=== PATIENT | male | born 1965 | race Caucasian/White ===

== ENCOUNTER 2025-02-09 19:17 | Inpatient (IN) | payer OTHER ==
[2025-02-09 20:26] LABS: ABSOLUTE IMMATURE GRANULOCYTES 0.02 x10^3/uL (0.0-0.031); BASOPHILS # 0.02 x10^3/uL (0.01-0.08); BG HCT 54.0 % (35.4-49); EOSINOPHIL % 0.0 % (0.8-7.0); EOSINOPHILS # 0.00 x10^3/uL (0.04-0.54); MCHC 33.1 g/dl (32.3-36.5); MEAN CELL VOLUME 85.2 fl (79.0-92.2); MEAN PLT VOLUME 9.2 fl (9.4-12.4); MONOCYTE # 1.07 x10^3/uL (0.30-0.82); MONOCYTE % 12.7 % (5.3-12.2); RDW 13.2 % (12.2-16.4); VENOUS BASE EXCESS -0.8 mmol/L (-2-2); VENOUS O2 SATURATION 74.4 % (70-80); VENOUS PCO2 38.4 mmHg (38-52); VENOUS PH 7.405 (7.310-7.410)
[2025-02-09] MEDS ORDERED: CEFEPIME HCL/D5W 2 GM/50 ML BAG IVPB ONE (20:40)
[2025-02-09] MEDS: CEFEPIME HCL 2 GM VIAL (RESTRICTED TO ID) IVPB ONE (20:51)
[2025-02-09 21:08] LABS: CO2 27.0 mmol/L (21-32); CREATININE 1.3 mg/dL (0.55-1.3); GLUCOSE,RANDOM 180.0 mg/dL (74-106); SGOT/AST 14.0 U/L (15-37); SGPT/ALT 16.0 U/L (13-61)
[2025-02-09 21:09] LABS: TOT PROT 6.6 g/dl (6.4-8.2)
[2025-02-09 21:11] LABS: ALK PHOS 62.0 U/L (45-117)
[2025-02-09] MEDS ORDERED: VANCOMYCIN/WATER 1250 MG 1,250 MG/250 ML BAG IVPB ONE (22:21)
[2025-02-09 22:36] LABS: EPI CELLS 25 /uL (0-25.1); HYALINE CASTS 20 /uL (0-3.1); URINE APPEARANCE CLOUDY; URINE BACTERIA 16 /uL (0-1359); URINE BILIRUBIN 2+ (NEGATIVE); URINE COLOR ORANGE; URINE GLUCOSE (UA) NEGATIVE (NEGATIVE); URINE KETONE 3+ (NEGATIVE); URINE LEUK ESTERASE NEGATIVE (NEGATIVE); URINE NITRITE NEGATIVE (NEGATIVE); URINE PROTEIN 2+ (NEGATIVE); URINE RBC 530 /uL (0-23.9); URINE UROBILINOGEN 1.0 mg/dL (0.2-1.0); URINE WBC 33 /uL (0-25.8)
[2025-02-09] MEDS: VANCOMYCIN/WATER 1250 MG 1,250 MG/250 ML BAG IVPB ONE (22:37)
[2025-02-09] MEDS ORDERED: LORazepam 2 MG/ML SDV VIAL IVPUSH PRN (23:35)
[2025-02-09] MEDS ORDERED: ACETAMINOPHEN 325 MG TABLET (FP) PO PRN (23:46)
[2025-02-10] MEDS: INSULIN ASPART SLIDING SCALE (NOVOLOG) 1 VIAL SQ SCH (00:17)
[2025-02-10] MEDS: PANTOPRAZOLE 40 MG TABLET PO SCH (00:18)
[2025-02-10] MEDS: D5-1/2NS+20 MEQ KCL - 20 MEQ/1,000 ML INFUS.BAG IV SCH ×2 (00:22→13:33)
[2025-02-10] MEDS ORDERED: HEPARIN NA (PORCINE) 5,000 UNITS/ML 1ML VIAL ONE (00:25)
[2025-02-10] MEDS: HEPARIN NA (PORCINE) 5,000 UNITS/ML 1ML VIAL SQ SCH (00:27)
[2025-02-10 05:16] VITALS: BMI 20.7
[2025-02-10 07:38] LABS: MEAN CELL VOLUME 85.0 fl (79.0-92.2); RDW 13.2 % (12.2-16.4)
[2025-02-10 07:40] LABS: IMMATURE PLATELET FRACTION # 3.50 x10^3/uL; MCHC 33.3 g/dl (32.3-36.5); MEAN PLT VOLUME 10.1 fl (9.4-12.4)
[2025-02-10 12:24] LABS: CO2 28.0 mmol/L (21-32); GLUCOSE,RANDOM 138.0 mg/dL (74-106)
[2025-02-10 12:27] LABS: CREATININE 1.1 mg/dL (0.55-1.3)
[2025-02-10] MEDS: LORazepam 4 MG/1 ML VIAL IVPUSH PRN (13:19)
[2025-02-10] MEDS: ACETAMINOPHEN 1000 MG/100 ML BAG IVPB PRN (13:33)
[2025-02-10] MEDS: ROSUVASTATIN CA 10 MG TABLET PO SCH (21:32)
[2025-02-10] MEDS: VANCOMYCIN/WATER FOR INJ (PEG) 1,000 MG/200 ML BAG IVPB ONE (22:42)
[2025-02-11 08:10] LABS: MCHC 32.8 g/dl (32.3-36.5); MEAN CELL VOLUME 85.4 fl (79.0-92.2); MEAN PLT VOLUME 9.7 fl (9.4-12.4); RDW 13.3 % (12.2-16.4)
[2025-02-11 08:22] LABS: GLUCOSE,RANDOM 124.0 mg/dL (74-106)
[2025-02-11 08:24] LABS: CO2 28.0 mmol/L (21-32)
[2025-02-11 08:25] LABS: CREATININE 0.8 mg/dL (0.55-1.3)
[2025-02-11] MEDS: CEFTRIAXONE 2 GM in DEXTROSE 5%-WATER 100 ML IVPB SCH (10:11)
[2025-02-12 08:06] LABS: ABSOLUTE IMMATURE GRANULOCYTES 0.03 x10^3/uL (0.0-0.031); BASOPHILS # 0.01 x10^3/uL (0.01-0.08); EOSINOPHIL % 1.1 % (0.8-7.0); EOSINOPHILS # 0.06 x10^3/uL (0.04-0.54); MCHC 32.6 g/dl (32.3-36.5); MEAN CELL VOLUME 87.2 fl (79.0-92.2); MEAN PLT VOLUME 9.3 fl (9.4-12.4); MONOCYTE # 0.84 x10^3/uL (0.30-0.82); MONOCYTE % 15.2 % (5.3-12.2); RDW 13.4 % (12.2-16.4)
[2025-02-12 08:36] LABS: CO2 30.0 mmol/L (21-32); GLUCOSE,RANDOM 120.0 mg/dL (74-106)
[2025-02-12 08:40] LABS: CREATININE 0.8 mg/dL (0.55-1.3)
[2025-02-13 08:25] LABS: ABSOLUTE IMMATURE GRANULOCYTES 0.05 x10^3/uL (0.0-0.031); BASOPHILS # 0.02 x10^3/uL (0.01-0.08); EOSINOPHIL % 1.6 % (0.8-7.0); EOSINOPHILS # 0.10 x10^3/uL (0.04-0.54); MCHC 32.4 g/dl (32.3-36.5); MEAN CELL VOLUME 86.0 fl (79.0-92.2); MEAN PLT VOLUME 9.0 fl (9.4-12.4); MONOCYTE # 1.03 x10^3/uL (0.30-0.82); MONOCYTE % 16.5 % (5.3-12.2); RDW 13.2 % (12.2-16.4)
[2025-02-13 08:58] LABS: CO2 29.0 mmol/L (21-32)
[2025-02-13 09:01] LABS: CREATININE 0.7 mg/dL (0.55-1.3); GLUCOSE,RANDOM 113.0 mg/dL (74-106)
[2025-02-14 10:35] LABS: ABSOLUTE IMMATURE GRANULOCYTES 0.07 x10^3/uL (0.0-0.031); BASOPHILS # 0.03 x10^3/uL (0.01-0.08); EOSINOPHIL % 1.5 % (0.8-7.0); EOSINOPHILS # 0.09 x10^3/uL (0.04-0.54); MCHC 32.8 g/dl (32.3-36.5); MEAN CELL VOLUME 84.6 fl (79.0-92.2); MEAN PLT VOLUME 9.5 fl (9.4-12.4); MONOCYTE # 0.86 x10^3/uL (0.30-0.82); MONOCYTE % 13.9 % (5.3-12.2); RDW 13.0 % (12.2-16.4)
[2025-02-14 11:01] LABS: CO2 29.0 mmol/L (21-32)
[2025-02-14 11:02] LABS: GLUCOSE,RANDOM 121.0 mg/dL (74-106)
[2025-02-14 11:05] LABS: CREATININE 0.7 mg/dL (0.55-1.3)
[2025-02-14 19:03] LABS: URINE APPEARANCE CLEAR; URINE BILIRUBIN NEGATIVE (NEGATIVE); URINE COLOR YELLOW; URINE GLUCOSE (UA) NEGATIVE (NEGATIVE); URINE KETONE TRACE (NEGATIVE); URINE LEUK ESTERASE NEGATIVE (NEGATIVE); URINE NITRITE NEGATIVE (NEGATIVE); URINE PROTEIN NEGATIVE (NEGATIVE); URINE UROBILINOGEN 1.0 mg/dL (0.2-1.0)
[2025-02-15 06:57] LABS: ABSOLUTE IMMATURE GRANULOCYTES 0.07 x10^3/uL (0.0-0.031); BASOPHILS # 0.03 x10^3/uL (0.01-0.08); EOSINOPHIL % 1.5 % (0.8-7.0); EOSINOPHILS # 0.08 x10^3/uL (0.04-0.54); MCHC 32.3 g/dl (32.3-36.5); MEAN CELL VOLUME 85.8 fl (79.0-92.2); MEAN PLT VOLUME 8.6 fl (9.4-12.4); MONOCYTE # 0.94 x10^3/uL (0.30-0.82); MONOCYTE % 17.5 % (5.3-12.2); RDW 12.9 % (12.2-16.4)
[2025-02-15 07:30] LABS: CO2 31.0 mmol/L (21-32); GLUCOSE,RANDOM 123.0 mg/dL (74-106)
[2025-02-15 07:34] LABS: CREATININE 0.8 mg/dL (0.55-1.3)
[2025-02-15] MEDS: CEFUROXIME AXETIL 500 MG TABLET PO SCH (09:31)
[2025-02-15] MEDS: PANTOPRAZOLE SODIUM 40 MG VIAL IVPUSH SCH (09:31)
[2025-02-15] MEDS: LORazepam 4 MG/1 ML VIAL IVPUSH PRN (22:05)
[2025-02-15] MEDS: D5-1/2NS+20 MEQ KCL - 20 MEQ/1,000 ML INFUS.BAG IV SCH ×2 (22:06→23:20)
[2025-02-15] MEDS: HEPARIN NA (PORCINE) 5,000 UNITS/ML 1ML VIAL SQ SCH (22:06)
[2025-02-16] MEDS: PANTOPRAZOLE 40 MG TABLET PO SCH (11:42)
[2025-02-16] MEDS: CEFUROXIME AXETIL 500 MG TABLET PO SCH (11:43)
[2025-02-16] MEDS: ROSUVASTATIN CA 10 MG TABLET PO SCH (23:01)
[2025-02-17 13:23] LABS: ABSOLUTE IMMATURE GRANULOCYTES 0.09 x10^3/uL (0.0-0.031); BASOPHILS # 0.03 x10^3/uL (0.01-0.08); EOSINOPHIL % 1.5 % (0.8-7.0); EOSINOPHILS # 0.09 x10^3/uL (0.04-0.54); MCHC 33.1 g/dl (32.3-36.5); MEAN CELL VOLUME 84.4 fl (79.0-92.2); MEAN PLT VOLUME 8.4 fl (9.4-12.4); MONOCYTE # 0.96 x10^3/uL (0.30-0.82); MONOCYTE % 15.9 % (5.3-12.2); RDW 13.0 % (12.2-16.4)
[2025-02-17 15:46] LABS: CO2 29.0 mmol/L (21-32); CREATININE 0.9 mg/dL (0.55-1.3); GLUCOSE,RANDOM 119.0 mg/dL (74-106)
[2025-02-18 10:33] LABS: ABSOLUTE IMMATURE GRANULOCYTES 0.05 x10^3/uL (0.0-0.031); BASOPHILS # 0.03 x10^3/uL (0.01-0.08); EOSINOPHIL % 1.0 % (0.8-7.0); EOSINOPHILS # 0.07 x10^3/uL (0.04-0.54); MCHC 33.0 g/dl (32.3-36.5); MEAN CELL VOLUME 84.4 fl (79.0-92.2); MEAN PLT VOLUME 8.8 fl (9.4-12.4); MONOCYTE # 0.90 x10^3/uL (0.30-0.82); MONOCYTE % 13.0 % (5.3-12.2); RDW 13.1 % (12.2-16.4)
[2025-02-18 11:30] LABS: CO2 28.0 mmol/L (21-32); CREATININE 0.8 mg/dL (0.55-1.3); GLUCOSE,RANDOM 126.0 mg/dL (74-106)
[2025-02-19 09:41] LABS: ABSOLUTE IMMATURE GRANULOCYTES 0.07 x10^3/uL (0.0-0.031); BASOPHILS # 0.03 x10^3/uL (0.01-0.08); EOSINOPHIL % 0.7 % (0.8-7.0); EOSINOPHILS # 0.06 x10^3/uL (0.04-0.54); MCHC 33.0 g/dl (32.3-36.5); MEAN CELL VOLUME 84.5 fl (79.0-92.2); MEAN PLT VOLUME 9.4 fl (9.4-12.4); MONOCYTE # 0.73 x10^3/uL (0.30-0.82); MONOCYTE % 8.7 % (5.3-12.2); RDW 13.2 % (12.2-16.4)
[2025-02-19 10:13] LABS: CO2 27.0 mmol/L (21-32); GLUCOSE,RANDOM 112.0 mg/dL (74-106)
[2025-02-19 10:17] LABS: CREATININE 0.8 mg/dL (0.55-1.3)
[2025-02-20] MEDS: D5-1/2NS+20 MEQ KCL - 20 MEQ/1,000 ML INFUS.BAG IV SCH (05:50)
[2025-02-20 19:44] VITALS: RESP 18
[2025-02-20] MEDS: DIVALPROEX SODIUM 125 MG SPRINKLE CAPS PO SCH (21:07)
[2025-02-20] MEDS: DONEPEZIL HCL 5 MG TABLET (FP) PO SCH (21:07)
[2025-02-20] MEDS: MIRTAZAPINE 30 MG TABLET PO SCH (21:07)
[2025-02-20] MEDS: LATANOPROST 0.005% OPHTH SOLN 2.5ML BOTTLE OU SCH (21:08)
[2025-02-21] MEDS: LORazepam 4 MG/1 ML VIAL IVPUSH PRN (14:51)
[2025-02-21] MEDS ORDERED: LORazepam 4 MG/1 ML VIAL IVPUSH PRN (16:40)
[2025-02-21] MEDS: LORazepam 4 MG/1 ML VIAL IVPUSH ONE (17:13)
[2025-02-21] MEDS: DONEPEZIL HCL 5 MG TABLET (FP) PO SCH (21:33)
[2025-02-21] MEDS: DIVALPROEX SODIUM 125 MG SPRINKLE CAPS PO SCH (21:33)
[2025-02-22] MEDS: LORazepam 4 MG/1 ML VIAL IVPUSH PRN (10:23)
[2025-02-23 10:31] LABS: ABSOLUTE IMMATURE GRANULOCYTES 0.04 x10^3/uL (0.0-0.031); BASOPHILS # 0.04 x10^3/uL (0.01-0.08); EOSINOPHIL % 1.7 % (0.8-7.0); EOSINOPHILS # 0.19 x10^3/uL (0.04-0.54); MCHC 32.6 g/dl (32.3-36.5); MEAN CELL VOLUME 85.8 fl (79.0-92.2); MEAN PLT VOLUME 9.3 fl (9.4-12.4); MONOCYTE # 0.73 x10^3/uL (0.30-0.82); MONOCYTE % 6.4 % (5.3-12.2); RDW 13.3 % (12.2-16.4)
[2025-02-23 11:33] VITALS: TEMP 97.7
[2025-02-23 12:21] LABS: CO2 33.0 mmol/L (21-32); GLUCOSE,RANDOM 97.0 mg/dL (74-106)
[2025-02-23 12:25] LABS: CREATININE 1.0 mg/dL (0.55-1.3)
[2025-02-23 17:36] VITALS: BP 105/81; PULSE 87
== END 2025-02-23 17:42 | DRG 193 ==
LOC: JER 19:17 → JERBED 22:50 → J4W 02-10 04:06 → J5S 02-15 21:17
PROVIDERS: ADMIT Internal Medicine; ATTEND Internal Medicine
DX: J18.9 Pneumonia, unspecified organism (principal); G92.8 Other toxic encephalopathy; J96.01 Acute respiratory failure with hypoxia; R53.2 Functional quadriplegia; F02.811 Dementia in other diseases classified elsewhere, unspecified severity, with agitation; R53.83 Other fatigue; D69.6 Thrombocytopenia, unspecified; G31.83 Neurocognitive disorder with Lewy bodies; E78.5 Hyperlipidemia, unspecified; F41.9 Anxiety disorder, unspecified; G47.00 Insomnia, unspecified; H40.9 Unspecified glaucoma
CPT/HCPCS: 36415; 70450-TC; 71045-TC-FY; 80048; 80053; 81003; 82803; 82962; 83036; 83735; 84484; 85025; 85651; 86140; 87040; 87086; 87899; 93005; 93010; 99285-25